=== PATIENT | female | born 1960 | race Caucasian/White ===

== ENCOUNTER 2017-05-22 14:18 | Emergency (ER) | payer BC ==
[2017-05-22 16:03] VITALS: BP 139/79
--- NOTE | 2017-05-22 16:06 | UC ---
Upper Extremity HPI - HPI Summary HPI Summary: 56 year old female presents with left wrist pain post fall. - History of Current Complaint Chief Complaint: UCUpperExtremity Stated Complaint: LEFT WRIST INJURY/PAIN Time Seen by Provider: 05/22/17 16:06 Hx Obtained From: Patient Hx Last Menstrual Period: n/a Onset/Duration: Sudden Onset Severity Initially: Moderate Severity Currently: Moderate Pain Scale Used: 0-10 Numeric Location Of Pain: Is Discrete @ - left wrist Character: Sharp Aggravating Factor(s): Lifting, Flexion, Extension - Allergies/Home Medications Allergies/Adverse Reactions: Allergies Allergy/AdvReac Type Severity Reaction Status Date / Time Clarithromycin [From Biaxin] Allergy Intermediate Vomiting Verified 11/11/14 17: 39 Lisinopril Allergy Coughing Verified 05/22/17 16:03 Penicillins Allergy Rash Verified 11/11/14 17:39 Home Medications: Home Medications Ibuprofen TAB* [Motrin TAB* 400 MG] 400 mg PO Q4H PRN 05/22/17 [History Confirmed 05/22/17] PMH/Surg Hx/FS Hx/Imm Hx Previously Healthy: Yes - Surgical History Surgical History: Yes Surgery Procedure, Year, and Place: neck sugrary X 2 for herniated discs. C- SECT - Family History Known Family History: Positive: None - Social History Alcohol Use: Daily Alcohol Amount: few beers Substance Use Type: None Smoking Status (MU): Never Smoked Tobacco Review of Systems Constitutional: Negative Skin: Negative Eyes: Negative ENT: Negative Respiratory: Negative Cardiovascular: Negative Gastrointestinal: Negative Genitourinary: Negative Motor: Negative Neurovascular: Negative Musculoskeletal: Other: - left wrist pain Neurological: Negative Psychological: Negative All Other Systems Reviewed And Are Negative: Yes Physical Exam Triage Information Reviewed: Yes Vital Signs: Initial Vital Signs Temp 37.6 C 05/22/17 15:55 Pulse 75 05/22/17 15:55 Resp 14 05/22/17 15:55 BP 139/79 05/22/17 15:55 Vital Signs Reviewed: Yes Eye Exam: Normal ENT Exam: Normal Dental Exam: Normal Neck exam: Normal Neck: Positive: 1 Respiratory Exam: Normal Cardiovascular Exam: Normal Abdominal Exam: Normal Musculoskeletal: Positive: Other: - left wrist pain Neurological Exam: Normal Psychological Exam: Normal Skin Exam: Normal Upper Extremity Course/Dx - Differential Dx/Diagnosis Provider Diagnoses: left wrist pain. left scaphoid pain Discharge - Discharge Plan Condition: Stable Disposition: HOME Prescriptions: Ibuprofen TAB* [Motrin TAB* 800 MG] 800 mg PO Q6H #30 tab Patient Education Materials: Wrist Sprain (ED) Referrals: Freddy Dent MD [Medical Doctor] - Shamika Nicole [Primary Care Provider] -
--- NOTE | 2017-05-22 16:35 | RAD ---
INDICATION: LEFT carpal region pain post fall 2 weeks ago. COMPARISON: September 10, 2007 TECHNIQUE: AP, lateral, and oblique views LEFT wrist. REPORT: Normal articular alignment. Negative for fracture. Advanced joint space narrowing with associated mild osteophytosis and subchondral sclerosis at the scaphoid trapezium articulation with interval worsening. Minimal osteophytosis at the basal joint of the thumb. Unremarkable soft tissue contours. IMPRESSION: No radiographic evidence for fracture. Interval worsening of degenerative arthropathy most prominent at the scaphoid trapezium articulation.
[2017-05-22] MEDS ORDERED: Acetaminop/Codeine 30 MG TAB* 1 TAB (300 MG/30 MG) PO ONE (16:46)
== END 2017-05-22 16:54 | disposition home or self-care (01) ==
LOC: UCCORT 14:18
DX: M25.532 Pain in left wrist (principal); M19.032 Primary osteoarthritis, left wrist; Z88.1 Allergy status to other antibiotic agents; Z88.8 Allergy status to other drugs, medicaments and biological substances; Z88.0 Allergy status to penicillin
CPT/HCPCS: 99213; A9270-GY; G0463

== ENCOUNTER 2017-10-19 08:25 | Day surgery (SDC) | payer BC ==
[~2017-10-19 08:25] MED LIST: Buffered Lidocaine 0.9% SYRIN* 5 ML/SYR SYRINGE INTRADERM ONE; Famotidine IV* 10 MG/ML 2 ML (20 mg) IV ONE
[2017-10-19] MEDS ORDERED: Clindamycin 900 MG IVPREMIX(* 900 MG/50 ML SDV IV ONE (08:37)
[2017-10-19] MEDS ORDERED: Famotidine IV* 10 MG/ML 2 ML (20 mg) ONE (08:37)
[2017-10-19] MEDS ORDERED: Bupivacaine 0.25% SDV* 30 ML ONE ×2 (10:09→11:30)
[2017-10-19] MEDS ORDERED: Propofol* 10 MG/ML 20 ML BTL IV PUSH ONE ×2 (10:34→10:40)
[2017-10-19] MEDS ORDERED: fentaNYL* 50 MCG/ML 2 ML VIAL (100 MCG VIAL) ONE (10:34)
[2017-10-19] MEDS ORDERED: Lidocaine 2% PF * 5 ML VIAL ONE (10:40)
[2017-10-19] MEDS ORDERED: fentaNYL* 50 MCG/ML 2 ML VIAL (100 MCG VIAL) IV PRN (11:43)
[2017-10-19] MEDS ORDERED: Naloxone* 0.4 MG/ML 1 ML VIAL IV PRN (11:43)
[2017-10-19] MEDS ORDERED: Ondansetron INJ* 2 MG/ML VIAL IV PRN (11:43)
[2017-10-19 14:00] VITALS: BP 117/67
--- NOTE | 2017-10-20 11:45 | OP ---
DATE OF OPERATION: 10/19/17 - [facility] DATE OF : 60 SURGEON: Jean Claude Guadalupe MD WOOL BUYER: LEENA Peraza. An state tested nursing assistant was needed for the procedure to aid in positioning of the arm and retraction. ANESTHESIOLOGIST: Dr. Niño. ANESTHESIA: General. PRE-OP DIAGNOSES: 1. Left thumb stage 2 carpometacarpal arthritis. 2. 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 3. Left carpal tunnel syndrome. POST-OP DIAGNOSES: 1. Left thumb stage 2 carpometacarpal arthritis. 2. 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 3. Left carpal tunnel syndrome. 4. Left flexor carpi radialis tendon rupture. OPERATIVE PROCEDURE: 1. Left thumb carpometacarpal arthroplasty with trapeziectomy. 2. Left free flexor carpi radialis tendon graft transfer for humb suspension and tendon interposition. 3. Left partial trapezoidectomy. 4. Left carpal tunnel release. INDICATIONS: Wendi is 56. She is having severe left thumb base and radial- sided wrist pain. She is also having carpal tunnel symptoms. We had talked about her treatment options. This has been going on for several months. We had talked about injections given the fact that a lot of her problems are in the STT joint, it is much more difficult to inject that. She has tried brace and other nonoperative treatments. She wanted to proceed with surgery. ESTIMATED BLOOD LOSS: 2 mL. COMPLICATIONS: None. FINDINGS: The FCR tendon was degenerative and ruptured. This was noted after the trapezium was excised. DESCRIPTION OF PROCEDURE: Wendi was seen in the preoperative holding area. The correct site, side, and procedure were identified. We came back to the operating room where the arm was prepped and draped in the usual fashion. A time-out was performed. I began by exsanguinating the arm with the Esmarch and the tourniquet was inflated to 250 mmHg. I made a 2 to 3 cm longitudinal incision in the proximal aspect of the palm in the typical location for an open carpal tunnel release. Dissection was carried down through the subcutaneous tissue and palmar fascia. The facia and subcutaneous tissue was released proximally and distally. I then released the transverse carpal ligament from distal to proximal just off the radial aspect of the hook of the hamate. The remainder of the ligaments were released proximally with a tenotomy scissors under direct visualization. Once the release was completed distally and proximally, there was absolutely no compression on the nerve. We irrigated out the wound and the skin was closed with 4-0 nylon suture. I then made a 2 to 3 cm longitudinal incision over the dorsal radial aspect of the thumb CMC joint. Dissection was carried down, the traversing sensory nerve was retracted, the radial artery was mobilized. There was a large perforating branch, this was tied off and the radial artery was retracted out of the way. I raised subperiosteal and capsular flaps off the trapezium. The soft tissue was released with a [place] blade. The trapezium was then excised in its entirety with a rongeur. After I completed the excision of the trapezium, the FCR tendon was noted to have ruptured just at the distal aspect of the scaphoid. There were just a few small degenerative fibers remaining. It was not injured during the trapeziectomy, it simply was not present ruptured. The FPL tendon was seen just deep to the capsule. At this point, I decided to prepare for thumb suspension with a free tendon graft, so I made my drill hole using sequentially with arterial drill bits from the dorsal radial aspect of the thumb, metacarpal proximal shaft, down exiting at the volar, ulnar articular surface. The wound was irrigated out. I turned my attention to harvesting the graft. I made a 1 cm transverse incision over the distal aspect of the FCR tendon just proximal to the wrist flexion crease. The sheath was released. The tendon was brought up into the wound. It was a bit degenerative there. I released it distally. I then came proximally and made another 1 to 2 cm transverse incision and was able to deliver the FCR tendon into the more proximal wounds and released it at the musculotendinous junction. The tendon was then split. It was set aside for later use. At this point, I had my state tested nursing assistant pull traction on the 2nd ray and noted that the distal pole of the scaphoid was completed devoid of articular cartilage. I used my osteotomes to excise the proximal 2 to 3 mm of trapezoid, this came out cleanly. It was very difficult to get the trapezoid to appose and touch the distal pole of the scaphoid after the partial trapezoidectomy. I then placed 1 mini Mitek suture anchor in the base of the 2nd metacarpal. I then took 1 strand of my free tendon graft and sewed and whipstitched up into graft using the 2 Ethibond suture coming off the mini Mitek suture anchor. I used the other limb of the suture to bring the tendon down the bone and tied this off in standard fashion. I then used a 26-gauge wire to pass my tendon through the bone tunnel. The graft was then brought back around the metacarpal base and sewed to itself with a 3-0 Ethibond suture. This was pinned to the thumb very nicely and put in a very nice position of abduction and slight pronation. At this point, I took the other tail of my free tendon graft and I made a mat out of it using sewing it together 4-0 Vicryl suture. I had my state tested nursing assistant pull traction on the index finger and placed the tendon graft mat as an interposition between the base of the trapezoid and the distal pole of the scaphoid. The traction was laid off in the index finger and this held the graft down nicely. The remainder of the graft from my tendon transfer was rolled up into a ball, secured with 3-0 Ethibond suture, and placed as an interposition between the base of the metacarpal bone and the distal pole of the scaphoid. At this point, we irrigated out the wound, the capsule was closed with 3-0 Ethibond suture, the skin was closed with 4-0 nylon suture. Wounds were all infiltrated with 0.25% plain Marcaine. Wounds were dressed. A thumb spica splint was applied. Tourniquet was deflated and she was taken to the recovery room in stable condition. [id number]/[facility] #: [id number] LUIS
== END 2017-10-19 13:56 | disposition home or self-care (01) ==
LOC: OREAST 08:25
PROVIDERS: ATTEND Orthopaedic Surgery Hand Surgery
DX: M13.832 Other specified arthritis, left wrist (principal); G56.02 Carpal tunnel syndrome, left upper limb; F41.8 Other specified anxiety disorders; E10.9 Type 1 diabetes mellitus without complications; Z79.4 Long term (current) use of insulin; Z96.41 Presence of insulin pump (external) (internal)
CPT/HCPCS: 88304; 88311; C1713; J2704; J3010